=== PATIENT | male | born 1995 | race Caucasian/White ===

== ENCOUNTER 2019-06-14 11:41 | Emergency (ER) | payer OTHER ==
[~2019-06-14] VITALS: Ht 180.3 cm; Wt 86.2 kg
[2019-06-14] MEDS ORDERED: LAMO100 PO (12:16)
[2019-06-14] MEDS ORDERED: Lamictal100 MG PO (12:41)
[2019-06-14] MEDS ORDERED: TOPI25 PO (12:41)
== END 2019-06-14 13:14 | disposition home or self-care (01) ==
LOC: ER 11:41
DX: G40.909 Epilepsy, unspecified, not intractable, without status epilepticus (principal); Z91.14 Patient's other noncompliance with medication regimen; Z87.891 Personal history of nicotine dependence; Z79.899 Other long term (current) drug therapy
CPT/HCPCS: 99284

== ENCOUNTER 2022-03-23 09:49 | Emergency (ER) | payer OTHER ==
[~2022-03-23] VITALS: Ht 180.3 cm; Wt 104.3 kg
[~2022-03-23 09:49] MED LIST: LAMO100 PO; Lamictal100 MG PO; TOPI25 PO
[2022-03-23] MEDS ORDERED: Norco 5-325 Ta1 EACH PO (14:18)
== END 2022-03-23 14:55 | disposition home or self-care (01) ==
LOC: ER 09:49
DX: S20.212A Contusion of left front wall of thorax, initial encounter (principal); G40.909 Epilepsy, unspecified, not intractable, without status epilepticus; W06.XXXA Fall from bed, initial encounter; Z79.899 Other long term (current) drug therapy
CPT/HCPCS: 71101